=== PATIENT | female | born 1990 | race Caucasian/White ===

== ENCOUNTER 2021-09-13 22:28 | Emergency (ER) | payer BC ==
[2021-09-13 22:41] VITALS: BP 124/84; PULSE 95; TEMP 98.2; BMI 25.6
[2021-09-13 23:28] LABS: HEMATOCRIT 37.7 % (32.4-45.2); HEMOGLOBIN 12.7 GM/dl (10.7-15.3); MCHC 33.8 g/dl (32.0-36.0); MEAN CELL VOLUME 91.9 fl (80-96); MEAN PLT VOLUME 8.7 fl (7.5-11.1); PLATELET COUNT 198 10^3/uL (134-434); RDW 13.4 % (11.6-15.6); WHITE BLOOD COUNT 10.1 K/mm3 (4.0-10.8)
[2021-09-13 23:39] LABS: ALBUMIN 4.2 g/dl (3.4-5.0); BILIRUBIN,TOTAL 0.5 mg/dl (0.2-1); CALCIUM 9.6 mg/dl (8.5-10); CREATININE 0.8 mg/dl (0.55-1.3)
[2021-09-13 23:44] LABS: PLATELET ESTIMATE ADEQUATE
== END 2021-09-14 00:16 | disposition home or self-care (01) ==
LOC: FER 22:28
DX: R00.2 Palpitations (principal)
CPT/HCPCS: 36415; 80053; 82550; 84484; 85025; 85379; 93005; 99284-25